=== PATIENT | male | born 1965 | race Caucasian/White ===

== ENCOUNTER 2017-05-21 11:59 | Emergency (ER) | payer MEDICAID ==
[2017-05-21 12:16] VITALS: BMI 37.1
[2017-05-21 12:20] VITALS: BP 132/84; PULSE 94; RESP 20; TEMP 98.6; O2SAT 100
--- NOTE | 2017-05-21 14:11 | ED PDOC ---
Arrival/HPI - General Chief Complaint: Upper Extremity Problem/Injury Time Seen by Provider: 05/21/17 12:45 Historian: Patient - History of Present Illness Narrative History of Present Illness (Text): 05/21/17 14:07 51-year-old male presents today with a 2 day history of left-sided shoulder pain. Patient denies any trauma or injury. Patient states while at rest he has no pain in the shoulder. Patient states if he tries to move the arm/shoulder he develops pain. He denies chest pain or shortness of breath. He rates the pain as a 10 out of 10. Patient states he is unable to fully lift his arm above his head. Patient denies back pain. Patient denies fevers or chills. No medications have been taken for pain at home today. Patient denies numbness weakness or tingling in the extremity. No other complaints. Time/Duration: Other (2 days) Symptom Course: Unchanged Quality: Aching, Stabbing Severity Level: 10 Past Medical History - Provider Review Nursing Documentation Reviewed: Yes - Travel History Have you recently traveled outside [place] w/in the past 3 mons?: No - Infectious Disease Hx of Infectious Diseases: None - Tetanus Immunization Tetanus Immunization: Unknown - Cardiac Hx Cardiac Disorders: No - Pulmonary Hx Respiratory Disorders: No - Neurological Hx Neurological Disorder: No - HEENT Hx HEENT Disorder: No - Renal Hx Renal Disorder: No - Endocrine/Metabolic Hx Diabetes Mellitus Type 2: Yes - Hematological/Oncological Hx Blood Disorders: No - Integumentary Hx Dermatological Disorder: No - Musculoskeletal/Rheumatological Hx Musculoskeletal Disorders: No - Psychiatric Hx Depression: No Hx Emotional Abuse: No Hx Physical Abuse: No Hx Substance Use: No - Surgical History Hx Orthopedic Surgery: Yes (knee) - Anesthesia Hx Anesthesia: No Hx Anesthesia Reactions: No Hx Malignant Hyperthermia: No - Suicidal Assessment Feels Threatened In Home Enviroment: No Family/Social History - Physician Review Nursing Documentation Reviewed: Yes Family/Social History: Unknown Family HX Smoking Status: Heavy Smoker > 10 Cigarettes Daily Hx Alcohol Use: No Hx Substance Use: No Allergies/Home Meds Allergies/Adverse Reactions: Allergies No Known Allergies Allergy (Verified 03/05/14 07:52) Home Medications: Home Meds Medication Instructions Recorded Confirmed ? Metformin? 500 mg PO DAILY 03/05/14 05/21/17 Review of Systems - Review of Systems Constitutional: absent: Fatigue, Fevers Respiratory: absent: SOB, Cough Cardiovascular: absent: Chest Pain, Palpitations Gastrointestinal: absent: Abdominal Pain, Nausea, Vomiting Genitourinary Male: absent: Dysuria, Frequency, Hematuria Musculoskeletal: Arthralgias. absent: Back Pain, Neck Pain Skin: absent: Rash, Pruritis Neurological: absent: Headache, Dizziness Psychiatric: absent: Anxiety, Depression Physical Exam Vital Signs Reviewed: Yes Vital Signs Temp Pulse Resp BP Pulse Ox 05/21/17 12:16 98.6 F 94 H 20 132/84 100 Temperature: Afebrile Blood Pressure: Normal Pulse: Regular Respiratory Rate: Normal Appearance: Positive for: Well-Appearing, Non-Toxic, Comfortable Pain Distress: None Mental Status: Positive for: Alert and Oriented X 3 Finger Stick Blood Glucose: 258 - Systems Exam Head: Present: Atraumatic Mouth: Present: Moist Mucous Membranes Neck: Present: Normal Range of Motion Respiratory/Chest: Present: Clear to Auscultation, Good Air Exchange. No: Respiratory Distress, Accessory Muscle Use, Tender to Palpation Cardiovascular: Present: Regular Rate and Rhythm, Normal S1, S2. No: Murmurs Abdomen: No: Tenderness Back: Present: Normal Inspection. No: Midline Tenderness, Paraspinal Tenderness Upper Extremity: Present: NORMAL PULSES, Tenderness (left arm; + ttp over anterior shoulder; no edema, no erythema; no ecchymosis; inability to abduct shoulder. sensation and distal pulses in tact. cap refill <2. ), Neurovascularly Intact, Capillary Refill < 2s. No: Normal ROM, Swelling, Erythema, Deformity Neurological: Present: GCS=15, Speech Normal Skin: Present: Warm, Dry, Normal Color. No: Rashes Psychiatric: Present: Alert, Oriented x 3 Medical Decision Making ED Course and Treatment: 05/21/17 14:11 Patient nontoxic well-appearing in no distress with stable vital signs X-rays of the left shoulder; no fracture toradol IM Patient reassessment: Patient feeling better after medications. Improved abduction of the left shoulder. I discussed all results with patient advised to followup with the orthopedist for the next 2 days. Return if symptoms worsen persist or new symptoms develop Patient verbalizes understanding of discharge instructions and need for immediate followup. all aspects of this case were discussed the attending of record. Impression: shoulder pain Motrin every 6 hours as needed for pain flexeril;1 tablet every 8 hours as needed for muscle spasms; may cause drowsiness. Rest, ice Followup with the orthopedist within the next 2 days Followup with primary care physician within the next 2 days Return if any other concerning symptoms develop 05/21/17 14:48 - RAD Interpretation Radiology Orders: 05/21/17 12:46 SHOULDER LEFT [RAD] Stat - Medication Orders Current Medication Orders: Discontinued Medications Ketorolac Tromethamine (Toradol) 60 mg IM STAT STA Stop: 05/21/17 12:47 Last Admin: 05/21/17 12:59 Dose: 60 mg MAR Pain Assessment Document 05/21/17 12:59 TA (Rec: 05/21/17 12:59 TA [id number]) Pain Reassessment Is this a pain reassessment? No Sleep Is patient sleeping during reassessment? No Presence of Pain Presence of Pain No Pain Scale Used Pain Scale Used Numeric Location Left, Right or Bilateral Left Pain Location Body Site Shoulder Description Description Constant IM Administration Charges Document 05/21/17 12:59 TA (Rec: 05/21/17 12:59 TA [id number]) Charges for Administration # of IM Administrations 1 Disposition/Present on Arrival - Present on Arrival Any Indicators Present on Arrival: No History of DVT/PE: No History of Uncontrolled Diabetes: No Urinary Catheter: No History of Decub. Ulcer: No History Surgical Site Infection Following: None - Disposition Have Diagnosis and Disposition been Completed?: Yes Diagnosis: Shoulder pain Disposition: HOME/ ROUTINE Disposition Time: 14:49 Patient Plan: Discharge Condition: GOOD Discharge Instructions (ExitCare): Shoulder Pain (ED) Additional Instructions: Motrin every 6 hours as needed for pain flexeril;1 tablet every 8 hours as needed for muscle spasms; may cause drowsiness. Rest, ice Followup with the orthopedist within the next 2 days Followup with primary care physician within the next 2 days Return if any other concerning symptoms develop Prescriptions: Cyclobenzaprine [Cyclobenzaprine HCl] 10 mg PO Q8 #10 tab Ibuprofen [Motrin] 600 mg PO Q6H PRN #20 tab PRN Reason: pain/fever reduction Referrals: Luther Simon MD [Primary Care Provider] - Follow up with primary Mamadou Pinto III, MD [Medical Doctor] - Follow up with primary [facility] [Outside] - Follow up with primary Forms: [facility] (Japanese), WORK NOTE
--- NOTE | 2017-05-21 15:16 | RAD ---
PROCEDURE: Radiographs of the Left Shoulder HISTORY: shoulder pain COMPARISON: No prior. FINDINGS: BONES: Normal. No fracture. JOINTS: Normal. Glenohumeral and acromioclavicular joints preserved. No osteoarthritis. SOFT TISSUES: Normal. OTHER FINDINGS: None. IMPRESSION: Normal radiographs of the left shoulder.
== END 2017-05-21 14:59 | disposition home or self-care (01) ==
LOC: ED 11:59
DX: M25.512 Pain in left shoulder (principal); E11.9 Type 2 diabetes mellitus without complications; F17.210 Nicotine dependence, cigarettes, uncomplicated
CPT/HCPCS: 73030; 82948; 96372; 99283; J1885